=== PATIENT | male | born 1990 | race Caucasian/White ===

== ENCOUNTER 2021-11-11 16:02 | Emergency (ER) | payer OTHER ==
[~2021-11-11] VITALS: Ht 172.7 cm; Wt 81.6 kg
== END 2021-11-11 18:36 | disposition home or self-care (01) ==
LOC: ER 16:02
DX: S61.311A Laceration without foreign body of left index finger with damage to nail, initial encounter (principal); W26.0XXA Contact with knife, initial encounter; Y93.G9 Activity, other involving cooking and grilling; Y92.018 Other place in single-family (private) house as the place of occurrence of the external cause; Y99.8 Other external cause status